=== PATIENT | male | born 1995 | race Caucasian/White ===

== ENCOUNTER 2021-01-23 17:44 | Emergency (ER) | payer OTHER, SELFPAY ==
[2021-01-23 17:45] VITALS: BP 95/66; PULSE 88; RESP 16; TEMP 35.9; O2SAT 98
[2021-01-23 17:46] VITALS: BP 95/66; PULSE 77; RESP 16; TEMP 35.9; O2SAT 98; BMI 23.6
[2021-01-23 18:18] VITALS: BP 112/71; PULSE 80; RESP 19; O2SAT 88; O2SAT 99
--- NOTE | 2021-01-23 18:28 | EDS_ITS ---
HPI History of Present Illness Chief Complaint: Allergic Reaction Informant: patient and spouse/S.O. Onset/Context/Timing Onset: Today and Hours Context: Sudden Onset Timing: Continuous Current Severity: Mild Maximum Severity: Severe Narrative Narrative: 25-year-old [place] male history of allergic reaction to bee stings. [place] camp [place] 1 [place] 2 hours ago was stung on his right forearm and started having swelling of his tongue and hypotension. Squad was called they gave him an injection of epinephrine. And he is doing much better now. He had a similar reaction in the past. He denies any trouble swallowing or breathing currently. Prior similar symptoms: Yes Recent Illness/Hospitalization: No [facility] Medical History (Updated 01/23/21 @ 18:[address] Jenaro Dong MD) Anaphylactic reaction to bee sting Home Medications epinephrine 0.3 mg IM Q10M PRN #1 ea 01/23/21 [Rx Last Taken Unknown] Allergy/AdvReac Type Severity Reaction Status Date / Time No Known Allergies Allergy Verified 01/23/21 17:50 Social History Smoking Status: Never smoker ROS ROS ED ROS Narrative Denies recent illness. Review of Systems ROS Unobtainable: Denies due to encephalopathy Constitutional Constitutional ED: Denies fever(s) or subjective Eyes Eyes: Denies change in vision ENT ENT ED: Denies ear pain or sore throat Cardiovascular Cardiovascular: Denies chest pain Respiratory/Chest Respiratory/Chest: Denies cough or dyspnea Gastrointestinal Gastrointestinal: Denies abdominal pain, diarrhea, nausea or vomiting Genitourinary Genitourinary ED: Denies dysuria or hematuria Musculoskeletal Musculoskeletal: Denies myalgias Integumentary Denies rash Neurologic Neurologic: Denies headache(s) Psychiatric Psychiatric: Denies depression Endocrine Endocrinology: Denies polyuria Allergic/Immunologic Allergic/Immunologic ED: Reports mouth swelling and tongue swelling; Denies urticaria EXAM Physical Exam Narrative Exam Narrative: The exam is minimal swelling of his tongue at this time. Lips are unremarkable posterior pharynx unremarkable. No trouble swallowing or breathing. No drooling or stridor. Neck nontender. Lungs clear to auscultation bilaterally. No wheezing. Heart regular rhythm rate about 80. Abdomen soft nontender. Moving all 4 extremities. No edema. Small local allergic reaction to a bee sting on his distal right forearm on the radial side. There is no stinger at this time.Well-appearing young male no acute distress. Vital signs stable afebrile. His initial blood pressure is 95/66 currently is 112/71. Const Vital Signs: 01/23/21 17:45 01/23/21 17:46 01/23/21 18:18 Temperature 96.7 F L 96.7 F L Temperature Source Temporal Temporal Pulse Rate 88 77 80 Respiratory Rate 16 16 19 H Blood Pressure 95/66 95/66 112/71 Blood Pressure Mean 75 75 84 Pulse Ox 98 98 99 Oxygen Delivery Method Room Air Room Air Nasal Cannula Oxygen Flow Rate (L/min) 2 Positive well nourished and well developed; Negative for unkempt General Appearance ED: well developed and NAD; Negative for unkempt HEENT Reports moist mucous membranes HEENT Narrative: Mild tongue swelling. Negative for trauma or tenderness Eyes PERRL and EOMs intact bilaterally Neck no lymphadenopathy, supple and no JVD General: Negative for tenderness Chest Wall inspection of chest normal and palpation of chest normal Resp normal respiratory effort and clear to auscultation bilaterally Cardio regular rate, regular rhythm, S1 normal heart sound, S2 normal heart sound and no murmurs GI normal to inspection, nondistended, normoactive bowel sounds, non-tender and non-distended Palpation: soft Back/Spine no CVA tenderness General Back: Negative for CVA tenderness Extremity normal to inspection Extremity Narrative: Small local reaction to insect sting right distal forearm. Neuro oriented x3 and CN's II-XII intact bilaterally Sensorium / Orientation: alert; Negative for lethargic or stuporous Motor Exam: strength 5/5 throughout Psych mental status grossly normal Appearance: Negative for unkempt Skin no wounds Skin Narrative: As above. MDM MDM MDM Narrative Medical decision making narrative: Patient with allergic reaction to bee sting. To be generalized reaction with tongue swelling and hypotension. Anaphylactic reaction treated with epinephrine by shubham. He is doing much better. He will be given IV Solu-Medrol and IV Benadryl and observed in the emergency department. Because he is doing well he will be discharged home. Discharge Plan Triage Chief Complaint: Allergic Reaction ED Provider: Jeanro Dong Dx/Rx/DC Orders Clinical Impression: Anaphylactic reaction to bee sting Instructions: ED BEE STING General Allergic Rxn Prescriptions: New epinephrine 0.3 mg/0.3 mL auto-injector 0.3 mg IM Q10M PRN (Reason: anaphylaxis) Qty: 1 RF: 1 Primary Care Provider: [facility] Doctor,Out of Referrals: [facility] Doctor,Out of [Primary Care Provider] - As Needed Activity Restrictions/Additional Instructions: Take it easy tonight and tomorrow. This should progressively get better. Make sure you get the EpiPen filled you have that available in case she would get stung again. You had what is called an anaphylactic reaction which is a severe reaction to bee stings and this could occur if you are stung again. Disposition Disposition: Home, Self Care
[2021-01-23] MEDS: MethylPREDNISolone 125 MG/2 ML Vial IV (18:41)
[2021-01-23 19:16] VITALS: BP 112/60; PULSE 104; RESP 22; O2SAT 99
--- NOTE | 2021-01-23 19:17 | ED.RN ---
THIS NURSE OFFERED TO DISCHARGE PT AND PT STATED LET ME WAKE UP A LITTLE BIT. PT RESTING QUIETLY AT THIS TIME.
--- NOTE | 2021-01-23 19:22 | ED.RN ---
PT C/O MY THROAT STILL FEELS SWOLLEN DR. THOMPSON INFORMED OF SAME.
[2021-01-23 19:45] VITALS: BP 114/69; PULSE 112; RESP 18; O2SAT 99
== END 2021-01-23 19:45 | disposition home or self-care (01) ==
LOC: ED 18:58
PROVIDERS: Emergency Provider Emergency Medicine
DX: T63.441A Toxic effect of venom of bees, accidental (unintentional), initial encounter (principal); T78.2XXA Anaphylactic shock, unspecified, initial encounter; X58.XXXA Exposure to other specified factors, initial encounter
CPT/HCPCS: 96374; 99285; J7030; A4216